=== PATIENT | female | born 1970 | race Caucasian/White ===

== ENCOUNTER 2019-04-18 16:20 | Outpatient (REF) | payer OTHER, SELFPAY ==
--- NOTE | 2019-04-18 15:30 | PAPFT_PTH ---
PATIENT: Nadia Reed LOC: [facility] U#:[id number] AGE/SX: 48/F ROOM: RE04/18/[address]: DELMAR Perez : 1970 BED: DIS: 04/18/2019 SPEC #: [id number] RECD: 04/18/19 17:39 STATUS: ALESSIO REJesse #: [id number] ISAC: 04/18/19 15:[address]: Fannie Negron DEPT: [facility] Cytology RECD BY: Maricarmen Fregoso ENTERED: 04/18/19 17:39 SP TYPE: PAPFT GILL DR: Donna Roche Tissues: 1 - CX/ENDOCX FOR PAP SMEARS Procedures: PAP THIN PREP/UVM Screening HPV DNA PROBE Comments: [id number]
== END 2019-04-18 16:40 ==
LOC: LBN 16:20
PROVIDERS: Visit Provider Nurse Practitioner Family
DX: Z12.4 Encounter for screening for malignant neoplasm of cervix (principal); Z11.51 Encounter for screening for human papillomavirus (HPV)
CPT/HCPCS: 88142; 87624

== ENCOUNTER 2019-05-03 01:38 | Outpatient (CLI) | payer OTHER, SELFPAY ==
--- NOTE | 2019-05-03 12:45 | DI.US_ITS ---
EXAM: US PELVIS AND TRANSVAGINAL CLINICAL HISTORY: DYSPAREUNIA AND BLOATING TECHNIQUE: Ultrasound performed using standard protocol. COMPARISON: ABD PELVIS WITH CONTRAST from 10/02/2009 FINDINGS: The uterus measures 9.7 x 3.7 x 4.8 cm. There is a posterior fibroid measuring 3.3 x 2.5 x 2.2 cm. T he endometrial stripe measures 6 millimeters in thickness. There is no evidence of free fluid or hyd ronephrosis. There is a 1.5 centimeter follicle on the right ovary. The left ovary is unremarkable. There are mildly prominent vessels on the left-side of the pelvis, in the left adnexal region. Fin dings could represent pelvic congestion syndrome. IMPRESSION: 3.3 centimeter posterior fibroid. Mildly dilated vessels in the left adnexal region could represent pelvic congestion. DATA REPOSITORY:
== END 2019-05-03 01:58 ==
PROVIDERS: PCP Nurse Practitioner Family; Visit Provider Nurse Practitioner Family
DX: N94.10 Unspecified dyspareunia (principal); R14.0 Abdominal distension (gaseous); D25.9 Leiomyoma of uterus, unspecified; N83.01 Follicular cyst of right ovary
CPT/HCPCS: 76830; 76856

== ENCOUNTER 2019-05-04 03:39 | Outpatient (CLI) | payer OTHER, SELFPAY | END 2019-05-04 03:59 | PROVIDERS: PCP Nurse Practitioner Family; Visit Provider Nurse Practitioner Family | DX: R00.2 Palpitations (principal); I49.3 Ventricular premature depolarization | CPT/HCPCS: 93225 ==

== ENCOUNTER 2019-05-08 09:02 | Outpatient (CLI) | payer OTHER, SELFPAY ==
--- NOTE | 2019-05-08 09:46 | W.CARDEVENT ---
Date of service: 05/08/19 Time of Service: 09:46 Cardiac Event Recorder Cardiac Event Note: There is a 24-hour Holter monitor ordered for the indication of palpitations. ?The patient was in normal sinus rhythm for the majority of the recording. ?There were 0 episodes of supraventricular tachycardia and 0 premature atrial contractions. ?There were no episodes of ventricular tachycardia and 6 single ventricular ectopic beats. ?There were 0 episodes of atrial fibrillation, no pauses greater than 3 seconds and no evidence of high degree heart block. ?Patient diary event was associated with normal sinus rhythm.
--- NOTE | 2019-05-08 13:26 | W.HOLTRPT ---
Date of service: 05/08/19 Time of Service: 13:26 Holter Monitor Report Holter Monitor Note: This is a 24-hour Holter monitor ordered for the indication of palpitations. ?The patient was in normal sinus rhythm for the majority of the recording. ?There were 0 episodes of supraventricular tachycardia and 0 premature atrial contractions. ?There were no episodes of ventricular tachycardia and 6 single ventricular ectopic beats. ?There were 0 episodes of atrial fibrillation, no pauses greater than 3 seconds and no evidence of high degree heart block. ?Patient diary event was associated with normal sinus rhythm.
== END 2019-05-08 09:22 ==
PROVIDERS: PCP Nurse Practitioner Family; Visit Provider Nurse Practitioner Family
DX: R00.2 Palpitations (principal); I49.3 Ventricular premature depolarization
CPT/HCPCS: 93226

== ENCOUNTER 2019-05-16 08:10 | Outpatient (REF) | payer OTHER, SELFPAY ==
[2019-05-16 12:19] LABS: HCT 40.7 % (36.0-46.0); Mean Corp. HGB Concentration 31.9 g/dL (32.0-36.0); Mean Corpuscular Hemoglobin 29.7 pg (27.0-33.0); Mean Corpuscular Volume 92.9 fL (80-95); Mean Platelet Volume 10.3 fL (8.0-11.0); Platelet Count 358 x1000/uL (130-400); RBC 4.38 m/cumm (4.00-5.20); RBC Distribution Width 14.2 % (11.7-14.6); White Blood Cell Count 10.84 k/cumm (4.4-10.8)
[2019-05-16 12:32] LABS: ALT 15 U/L (14-59); AST 12 U/L (15-37); Anion Gap 7.8 mmol/L (3-11); BUN 14 mg/dL (7-18); CO2 29.2 mmol/L (21.0-32.0); CREATININE 0.73 mg/dL (0.55-1.02); Calcium 9.2 mg/dL (8.5-10.1); Calculated LDL 153 mg/dL (<100); Chloride 104 mmol/L (98-107); Cholesterol 219 mg/dL (<200); Glucose 83 mg/dL (74-106); HDL Cholesterol 53 mg/dL (40-60); Potassium 4.8 mmol/L (3.5-5.1); Sodium 141 mmol/L (136-145); Triglyceride 66 mg/dL (<150)
== END 2019-05-16 08:30 ==
LOC: NCHCN 08:10
PROVIDERS: PCP Nurse Practitioner Family; Visit Provider Nurse Practitioner Family
DX: R00.2 Palpitations (principal); Z13.220 Encounter for screening for lipoid disorders; I10 Essential (primary) hypertension
CPT/HCPCS: 80048; 80061; 85027; 84450; 84460

== ENCOUNTER 2019-05-19 07:28 | Outpatient (CLI) | payer OTHER, SELFPAY ==
--- NOTE | 2019-05-19 15:52 | DI.MAMMO_ITS ---
EXAM: MG MAMMO SCREENING CLINICAL HISTORY: screening, Z12.39 TECHNIQUE: Bilateral full field digital CC and MLO mammographic images were obtained with 3D tomosyn thesis and utilizing computer aided detection (CAD). COMPARISON: This is a baseline examination. FINDINGS: Masses/Architectural Distortion: None seen. Microcalcifications: No suspicious pleomorphic-type are seen. Skin Thickening/Nipple Retraction: None. IMPRESSION: 1. No significant interval change with no specific features of malignancy noted. 2. Unless there is more urgent need, screening mammography is recommended, as per [employer] guidelines. BI-RADS Cat 1 - Negative Breast Density - Category B - Scattered areas of fibroglandular density A negative radiographic report should not delay biopsy if a dominant or clinically suspicious mass is present. Up to ten percent of cancers are not identified on mammography. A negative report may reinforce clinical impression. Adenosis and dense breasts may obscure an underlying neoplasm. False positive reports average 6 to 10%. Patient will receive a letter notifying them of these results.
== END 2019-05-19 07:48 ==
PROVIDERS: PCP Nurse Practitioner Family; Visit Provider Nurse Practitioner Family
DX: Z12.31 Encounter for screening mammogram for malignant neoplasm of breast (principal)
CPT/HCPCS: 77063; 77067

== ENCOUNTER 2019-06-15 11:04 | Outpatient (REF) | payer OTHER, SELFPAY ==
[2019-06-19 09:57] LABS: HBs Antibody, Quant <3.1 mIU/mL (See Note); Hepatitis B Surface Ab Negative (See Note)
[2019-06-19 10:22] LABS: Hepatitis C Ab w Rflx HCV PCR Negative (Negative)
[2019-06-19 10:44] LABS: HIV-1/2 Ag & Ab Screen Negative (Negative)
[2019-06-20 12:09] LABS: Syphilis Serology (RPR) Negative (Negative)
== END 2019-06-15 11:24 ==
LOC: NCHCN 11:04
PROVIDERS: PCP Nurse Practitioner Family; Visit Provider Nurse Practitioner Family
DX: Z11.3 Encounter for screening for infections with a predominantly sexual mode of transmission (principal); Z11.4 Encounter for screening for human immunodeficiency virus [HIV]; Z11.59 Encounter for screening for other viral diseases
CPT/HCPCS: 86706; 86803; 87389; 87491; 87591; 86592; 87480; 87510; 87660

== ENCOUNTER 2019-06-16 11:20 | Outpatient (REF) | payer OTHER, SELFPAY ==
[2019-06-19 12:28] LABS: Chlamydia Result Negative (Negative); GC Result Negative (Negative)
== END 2019-06-16 11:40 ==
LOC: NCHCN 11:20
PROVIDERS: PCP Nurse Practitioner Family; Visit Provider Nurse Practitioner Family
DX: Z11.3 Encounter for screening for infections with a predominantly sexual mode of transmission (principal)
CPT/HCPCS: 87491; 87591

== ENCOUNTER 2020-06-20 11:20 | Outpatient (REF) | payer OTHER, SELFPAY ==
--- NOTE | 2020-06-21 11:00 | SKI_PTH ---
PATIENT: Nadia Reed LOC: [facility] U#:[id number] AGE/SX: 49/F ROOM: RE06/20/[address]: Macey Brown : 1970 BED: DIS: 06/20/2020 SPEC #: [id number] RECD: 06/21/20 12:16 STATUS: ALESSIO CHARLES #: [id number] ISAC: 06/21/20 11:[address]: Macey Brown DEPT: Surgical Specimen RECD BY: Maricarmen Fregoso Tissues: 1 - SKIN BIOPSY(SHAVE/PUNCH) Procedures: SKIN LEVEL 4 Comments: [id number]
== END 2020-06-20 11:21 | disposition home or self-care (01) ==
LOC: LBN 11:20
PROVIDERS: PCP Nurse Practitioner Family; Visit Provider Nurse Practitioner Family
DX: D23.72 Other benign neoplasm of skin of left lower limb, including hip (principal)
CPT/HCPCS: 88305

== ENCOUNTER 2021-01-02 08:18 | Outpatient (REF) | payer OTHER, SELFPAY ==
[2021-01-02 14:54] LABS: ALT 24 U/L (14-59); AST 14 U/L (15-37); Anion Gap 9.4 mmol/L (3-11); BUN 14 mg/dL (7-18); CO2 28.6 mmol/L (21.0-32.0); CREATININE 0.7 mg/dL (0.55-1.02); Calcium 9.5 mg/dL (8.5-10.1); Calculated LDL 128 mg/dL (<100); Chloride 103 mmol/L (98-107); Cholesterol 200 mg/dL (<200); Glucose 92 mg/dL (74-106); HDL Cholesterol 60 mg/dL (40-60); Potassium 3.9 mmol/L (3.5-5.1); Sodium 141 mmol/L (136-145); Triglyceride 64 mg/dL (<150)
== END 2021-01-02 08:19 | disposition home or self-care (01) ==
LOC: NCHCN 08:18
PROVIDERS: PCP Nurse Practitioner Family; Visit Provider Nurse Practitioner Family
DX: E78.5 Hyperlipidemia, unspecified (principal); I10 Essential (primary) hypertension; F10.10 Alcohol abuse, uncomplicated
CPT/HCPCS: 80048; 80061; 84450; 84460

== ENCOUNTER 2021-02-06 18:18 | Emergency (ER) | payer OTHER, SELFPAY ==
[2021-02-06 18:25] VITALS: BP 177/109; PULSE 121; RESP 16; TEMP 37.2; O2SAT 100
--- NOTE | 2021-02-06 18:30 | DI.RAD_ITS ---
Exam(s) XR PORTABLE CHEST AP EXAM: XR PORTABLE CHEST AP CLINICAL HISTORY: hemoptysis TECHNIQUE: 2D digital imaging was performed of the chest. One image was obtained. An AP view was ob tained. COMPARISON: CR ABD FLAT UPRIGHT PA CHEST from 10/02/2009 FINDINGS: MEDIASTINUM: Normal. HEART: Normal. PULMONARY VASCULATURE: Normal. LUNGS: Clear. PLEURAL SPACE: No pleural effusion or pneumothorax. BONE:Within normal limits for the patient's age. OTHER FINDINGS:Normal. IMPRESSION: No acute pulmonary findings. DATA REPOSITORY: RADIATION DOSE DELIVERED:
--- NOTE | 2021-02-06 18:44 | ED.GENADUL_ITS ---
Discharge Plan Disposition Patient Disposition: HOME Condition: Stable Discharge Details Clinical Impression: Hemoptysis Primary Care Provider: Macey Brown ED Provider: Nirmala Shi Home Meds and New Rx's Prescriptions: Continued hydrochlorothiazide 25 mg tablet 25 mg PO DAILY RF: 0 bupropion HCl 150 mg tablet extended release 24 hr 150 mg PO QAM RF: 0 atorvastatin 10 mg tablet 20 mg PO DAILY RF: 0 vitamin E 100 unit Capsule 100 unit PO DAILY RF: 0 ascorbic acid (vitamin C) [Vitamin C] 500 mg Tablet 500 mg PO .QHS RF: 0 Discharge Instructions Instructions: Hemoptysis (ED) Stand Alone Forms: Work Release Referrals: Leonie Lara MD [ [facility]] - Medical Decision Making smoker with chronic smokers cough which became productive tonight, no fever or other symptoms chest xray, cbc, cmp, coags. patient is hemodynamically stable and physical exam unremarkable. no respiratory distress oxygenating 100 on room air. xray with no acute f indings. labs reviewed and unremarkable. a sputum has been obtained and is sent to lab, results pending at discharge. will be referred to pulmonology for further evaluation. return sooner for new or worsening symptoms Medical Records Medical records reviewed: Yes I reviewed the patient's medical records. Imaging Data Radiologic Study: Imaging: X-Ray Radiologist's impression: PROCEDURE INFORMATION: Exam: XR Chest Exam date and time: 02/06/2021 6:42 PM Age: 50 years old Clinical indication: Other: Hemoptysis TECHNIQUE: Imaging protocol: XR of the chest. Views: 1 view. COMPARISON: No relevant prior studies available. FINDINGS: Lungs: The lungs are clear. There is no pulmonary vascular congestion. Pleural spaces: There are no pleural effusions present. Heart/Mediastinum: The cardiomediastinal silhouette is within normal limits. Bones/joints: Unremarkable. IMPRESSION: No active cardiopulmonary disease identified. Dictated and Authenticated by: Dayton Stapleton MD. Ordering:KENNETH Silvestre MD Lab Data Lab results reviewed: Yes I reviewed the patient's lab results. Labs: Laboratory Results - last 24 hr 02/06/21 02/06/21 02/06/21 18:40 18:40 18:55 WBC 9.45 RBC 4.20 Hgb 12.7 Hct 38.8 MCV 92.4 MCH 30.2 MCHC 32.7 RDW 12.9 Plt Count 294 MPV 9.9 Immature Gran % 0.3 Neutrophils % 57.4 Lymphocytes % 32.9 Monocytes % 7.3 Eosinophils % 1.8 Basophils % 0.3 Nucleated RBC % 0 Absolute Neutrophils 5.42 Absolute Lymphocytes 3.11 Absolute Monocytes 0.69 Absolute Eosinophils 0.17 Absolute Basophils 0.03 PT 9.6 INR 1.0 APTT 24.8 Sodium 138 Potassium 3.4 L Chloride 102 Carbon Dioxide 25.5 Anion Gap 10.5 BUN 20 H Creatinine 0.9 Estimated GFR/1.73 m2 >= 60.00 Glucose 95 Calcium 9.1 Total Bilirubin 0.2 AST 16 ALT 23 Alkaline Phosphatase 81 Total Protein 7.6 Albumin 4.0 HPI General Mode of arrival: ambulatory . Date/Time Provider Initiated Documentation: 02/06/21 18:20 . Limitations to Documentation: no limitations . Information obtained by: patient . HPI Narrative: presents for evaluation of hemoptysis, reports 2 episodes tonight. has a chronic smokers cough but reports not usually productive. states she feels she is in her usual state of health and has had no fever or shortness of breath. she is not covid vaccinated. her denies any known exposures. no abdominal pain, no coughing fit preceeding the hemoptysis. she denies any previous similar symptoms Related Data Home Medications Medication Instructions Recorded Confirmed bupropion HCl 150 mg 24 hr tablet, 150 mg PO QAM 04/18/19 02/06/21 extended release hydrochlorothiazide 25 mg tablet 25 mg PO DAILY 04/18/19 02/06/21 ascorbic acid (vitamin C) [Vitamin 500 mg PO .QHS 02/06/21 02/06/21 C] atorvastatin 20 mg PO DAILY 02/06/21 02/06/21 vitamin E 100 unit PO DAILY 02/06/21 02/06/21 Allergies Allergy/AdvReac Type Severity Reaction Status Date / Time No Known Allergies Allergy Verified 02/06/21 18:32 General Stated Complaint: RespSymp JULIAN: 3 Review of Systems All systems reviewed & are unremarkable except as noted in HPI and below Constitutional Constitutional: Denies anorexia, Denies fatigue, Denies fever(s) and Denies lethargy ENT Ears, Nose, Mouth, and Throat: Denies dysphagia and Denies dizziness Cardiovascular Cardiovascular: Denies chest pain and Denies dyspnea Respiratory Respiratory: Reports hemoptysis, Denies dyspnea and Denies wheezing Gastrointestinal Gastrointestinal: Denies abdominal pain, Denies hematochezia, Denies change in bowel habits, Denies dysphagia, Denies nausea and Denies vomiting Musculoskeletal Musculoskeletal: Denies back pain Integumentary/Breasts Skin/Breast: Denies rash Neurologic Neurologic: Denies dizziness Endocrine Endocrine: Denies fatigue Hematologic/Lymphatic Hematologic/Lymphatic: Denies easy bleeding and Denies easy bruising Allergic/Immunologic Allergic/Immunologic: Denies wheezing PFSH Active Problem List (Updated 02/06/21 @ 21:14 by Nirmala Shi NP) Hemoptysis (Acute) Hypertension (Chronic) Surgical History (Updated 12/22/17 @ 14:33 by Utrip DE) Ligation of fallopian tube Family History (Updated 04/18/19 @ 15:19 by Fannie Negron NP) Maternal Grandmother Breast cancer Social History Smoking/Tobacco Use Status: Current every day Tobacco Type: cigarettes Smoking risk assessment performed?: Yes Substance use type: does not use Female Reproductive History Menstrual control method: permanent sterilization History History 1 Para 1 Hx # Term Pregnancies Multiple births Hx # Pregnancies Ectopic pregnancies AB induced Hx Number of Living Children AB spontaneous Exam Const General: cooperative, comfortable and no acute distress Nutritional Appearance: average body habitus Orientation: alert, awake and oriented x3 [facility] Head: normal to inspection, normocephalic and atraumatic Chest Chest: normal inspection of the chest Resp Effort & Inspection: normal respiratory effort Auscultation: clear to auscultation bilaterally and diminished lung sounds (bases) bilaterally Cardio Rate: regular rate Rhythm: regular rhythm GI Inspection: normal to inspection Neuro General: patient alert, patient awake and patient oriented x3 Psych Appearance: grossly normal Mental Status: mental status grossly normal Speech and Movement: speech and movement normal Mood: anxious mood Affect: anxious affect Attitude: cooperative Thought Process: normal Thought Content: normal Insight: insight good Judgment: judgment good Course Vital Signs Vital signs: Vital Signs Temperature 37.2 C 02/06/21 18:25 Pulse 121 H 02/06/21 18:25 Respiratory Rate 16 02/06/21 18:25 Blood Pressure 177/109 H 02/06/21 18:25 Pulse Oximetry 100 02/06/21 18:25 Temperature 37.2 C 02/06/21 18:25 Temperature Source Skin 02/06/21 18:25 Pulse 121 H 02/06/21 18:25 Respiratory Rate 16 02/06/21 18:25 Respiratory Effort Non-Labored 02/06/21 18:25 Blood Pressure 177/109 H 02/06/21 18:25 Blood Pressure Position Sitting 02/06/21 18:25 Pulse Oximetry 100 02/06/21 18:25 Oxygen Delivery Method Room Air 02/06/21 18:25 Oxygen Flow Rate 0 02/06/21 18:25 Pain Level 0 02/06/21 18:25
[2021-02-06 19:04] LABS: Abs Immature Grans 0.03 10^3/uL (0.0-0.06); Absolute Basophil Count 0.03 10^3/uL (0.0-0.2); Absolute Eosinophil Count 0.17 10^3/uL (0.0-0.7); Absolute Lymphocyte Count 3.11 10^3/uL (1.2-3.4); Absolute Monocyte Count 0.69 10^3/uL (0.1-0.8); Absolute Neutrophil Count 5.42 10^3/uL (1.2-6.7); Basophils % 0.3; Eosinophils % 1.8; HCT 38.8 % (36.0-46.0); HGB 12.7 g/dL (11.2-15.7); Immature Grans % 0.3; Lymphocytes % 32.9; MCH 30.2 pg (27.0-33.0); MCHC 32.7 % (32.0-36.0); MCV 92.4 fL (80-95); MPV 9.9 fL (8.0-11.0); Monocytes % 7.3; Neutrophils % 57.4; Nucleated RBC 0 %; Platelet Count 294 10^3/uL (130-400); RDW 12.9 % (11.7-14.6); RDW-SD 43.8 fL; WBC 9.45 10^3/uL (4.4-10.8)
[2021-02-06 20:10] LABS: PTT Activated 24.8 sec (21.0-27.5); Prothrombin Time 9.6 sec (9.3-11.0)
--- NOTE | 2021-02-06 20:29 | DI.VRAD_ITS ---
PROCEDURE INFORMATION: Exam: XR Chest Exam date and time: 02/06/2021 6:42 PM Age: 50 years old Clinical indication: Other: Hemoptysis TECHNIQUE: Imaging protocol: XR of the chest. Views: 1 view. COMPARISON: No relevant prior studies available. FINDINGS: Lungs: The lungs are clear. There is no pulmonary vascular congestion. Pleural spaces: There are no pleural effusions present. Heart/Mediastinum: The cardiomediastinal silhouette is within normal limits. Bones/joints: Unremarkable. IMPRESSION: No active cardiopulmonary disease identified. Dictated and Authenticated by: Dayton Stapleton MD. Ordering:KENNETH Silvestre MD
[2021-02-06 21:08] LABS: ALT 23 U/L (14-59); AST 16 U/L (15-37); Alkaline Phosphatase 81 U/L (46-116); Anion Gap 10.5 mmol/L (3-11); BUN 20 mg/dL (7-18); Bilirubin, Total 0.2 mg/dL (0.2-1.0); CO2 25.5 mmol/L (21.0-32.0); CREATININE 0.9 mg/dL (0.55-1.02); Calcium 9.1 mg/dL (8.5-10.1); Chloride 102 mmol/L (98-107); Glucose 95 mg/dL (74-106); Potassium 3.4 mmol/L (3.5-5.1); Sodium 138 mmol/L (136-145); Total Protein 7.6 g/dL (6.4-8.2)
[2021-02-06 21:30] VITALS: BP 152/96; PULSE 134; TEMP 36.6; O2SAT 98
[2021-02-06 21:37] VITALS: BP 152/96; PULSE 118; TEMP 36.6; O2SAT 98
[2021-02-08 16:52] LABS: COVID-19 RT-PCR UVMMC Result Negative (Negative)
== END 2021-02-06 21:44 | disposition home or self-care (01) ==
PROVIDERS: Emergency Provider Nurse Practitioner Acute Care; PCP Nurse Practitioner Family
DX: R04.2 Hemoptysis (principal); F17.210 Nicotine dependence, cigarettes, uncomplicated; J41.0 Simple chronic bronchitis; Z20.822 Contact with and (suspected) exposure to COVID-19
CPT/HCPCS: 36415; 80053; 99283; U0003; 71045; 85025; 85610; 85730; 87070; 87205

== ENCOUNTER 2021-03-10 00:37 | Outpatient (CLI) | payer OTHER, SELFPAY ==
[2021-03-10] MEDS: Omnipaque 350 MG/ML 100 ML BTL IJ (09:20)
--- NOTE | 2021-03-10 09:20 | DI.CT_ITS ---
Exam(s) CT CHEST W EXAM: CT CHEST W CLINICAL HISTORY: HEMOPTYSIS, R04.2 TECHNIQUE: Imaging Protocol: Axial computed tomography images with coronal and sagittal reformatted images were created and reviewed CONTRAST MATERIAL: Intravenous: Omnipaque 350 Contrast volume:70 ml. COMPARISON: CT ABD PELVIS WITH CONTRAST from 10/02/2009 CR ABD FLAT UPRIGHT PA CHEST from 10/02/2009 CT ABD PELVIS WITH CONTRAST from 10/02/2009 CR ABD FLAT UPRIGHT PA CHEST from 10/02/2009 CR,XR XR PORTABLE CHEST AP from 02/06/2021 CR,XR XR PORTABLE CHEST AP from 02/06/2021 FINDINGS: Tracheobronchial tree: No bronchiectasis or mucous plugging. Mediastinum and Candy: No dominant adenopathy or fluid collection. Pulmonary parenchyma: Mild bilateral paraseptal emphysema bilateral lung apices. No consolidation or dominant measurable mass. Pleura: No effusion or pneumothorax. Heart: The heart is not dilated. No coronary artery calcifications are seen. Aorta: Thoracic aorta non-dilated. Upper abdomen: Unremarkable. Lymph nodes: Within normal limits. Bones: Old mild compression deformity L1. Soft tissues: Unremarkable. IMPRESSION: Mild apical emphysema. RADIATION DOSE DELIVERED: 492.71mGy.cm Total DLP DATA REPOSITORY: All CT scans at this facility are submitted to the National Radiology Data Registry (NRDR) Dose Index Registry (DIR) with the [employer] (A[employer]). RADIATION OPTIMIZATION: All CT scans at this facility use at least one of these dose optimization te chniques: automated exposure control; mA and/or kV adjustment per patient size (includes targeted exa ms where dose is matched to clinical indication); or iterative reconstruction.
== END 2021-03-10 00:57 ==
PROVIDERS: PCP Nurse Practitioner Family; Visit Provider Nurse Practitioner Family
DX: R04.2 Hemoptysis (principal); J43.8 Other emphysema
CPT/HCPCS: 71260; J3490

== ENCOUNTER 2021-07-17 00:31 | Outpatient (CLI) | payer OTHER, SELFPAY ==
--- NOTE | 2021-07-17 07:52 | DI.MAMMO_ITS ---
Exam(s) MAMMO SCREENING EXAM: MAMMO SCREENING CLINICAL HISTORY: SCREENING, Z12.39 TECHNIQUE: Mammograms were interpreted according to the usual protocol including computer analysis w [employer] CAD system, tomosynthesis and C-view imaging. COMPARISON: FINDINGS: The breasts are of moderate density with somewhat asymmetric distribution of fibroglandular tissue in the breasts. The examination is compared with prior examination of May 2019 and there is an appar ent new area nodularity projected in the lateral central portion of the right breast on CC view. Thi s may correspond to an area of questionable asymmetric density or nodularity seen in the central port ion the breast on the MLO view. Additional mammographic views of this area are requested to include CC and MLO spot compression views of the right breast. No other significant change seen. IMPRESSION: Additional mammographic views of the right breast requested as described above. Right breast ultraso und recommended as well. BI-RADS Category 0 - Assessment Incomplete: Need additional imaging evaluation Breast Density - Category B - Scattered areas of fibroglandular density
== END 2021-07-17 00:51 ==
PROVIDERS: PCP Nurse Practitioner Family; Visit Provider Family Medicine
DX: Z12.31 Encounter for screening mammogram for malignant neoplasm of breast (principal); R92.8 Other abnormal and inconclusive findings on diagnostic imaging of breast
CPT/HCPCS: 77063; 77067

== ENCOUNTER → 2021-07-22 01:15 | Outpatient (CLI) | payer OTHER, SELFPAY ==
--- NOTE | 2021-07-22 | DI.MAMMO_ITS ---
Exam(s) MG MAMMO SCREEN CALL BACK UNI EXAM: MAMMO SCREEN CALL BACK UNI -RIGHT AND COMPLETE RIGHT BREAST ULTRASOUND CLINICAL HISTORY: F/U MAMMO, NEW AREA NODULARITY RT BREAST. TECHNIQUE: Unilateral spot mammographic images obtained with 3D tomosynthesisand utilizing computer aided detection (CAD). . Complete RIGHT breast Ultrasound was also performed, including all 4 quadrants, the retroareolar aníbal on, and the ipsilateral axilla. COMPARISON: Prior mammograms were reviewed. This additional imaging was performed due to findings described on the recent screening mammogram of 07/17/2021.. FINDINGS: DIAGNOSTIC RIGHT BREAST MAMMOGRAM: Additional mammographic views performed todaydo not dissipate this nodule.There are no malignant-appe aring microcalcification groups in this region. COMPLETE RIGHT BREAST ULTRASOUND: Ultrasound performed today reveals no evidence of solid or significant cystic lesions in all 4 quadra nts. Also no focal findings in the retroareolar region. Patient was scanned both by the creative technologist and myself. Also no adenopathy in the right axilla IMPRESSION: 1. There is an 8 x 5 millimeter well-defined nodular density in the right breast located approximatel y 5 cm in from the nipple, lateral of center. However, there is no correlative focal finding on ultr asound examination of the right breast. In addition, this not typical appearance benign intramammary lymph node this nodules also significantly more evident than on the prior mammogram of May 2019. 2. Recommend MRI examination. Findings were discussed by myself with the patient today. BI-RADS Category 0 - Assessment Incomplete: Need additional imaging evaluation, specifically MRI exam ination of the breasts. Breast Density - Category B - Scattered areas of fibroglandular density Breast density Category C or D implies that the patient has dense breast tissue. Dense breast tissue can make it harder to find cancer on a mammogram. Dense breast tissue is also associated with an incr eased risk of breast cancer. This information about the result of the mammogram report was provided to the patient to raise their awareness. Use this report when you speak with the patient about their risks for breast cancer, which includes their family history. At that time, you may recommend additional screening tests (Ultrasoun d or MRI) as these tests may add significant information. A negative radiographic report should not delay biopsy if a dominant or clinically suspicious mass is present. Up to ten percent of cancers are not identified on mammography. A negative report may reinforce clinical impression. Adenosis and dense breasts may obscure an underlying neoplasm. False positive reports average 6 to 10%. Patient will receive a letter notifying them of these results.
--- NOTE | 2021-07-22 | DI.US_ITS ---
Exam(s) US BREAST RT COMPLETE EXAM: US BREAST RT COMPLETE CLINICAL HISTORY: F/U MAMMO/SPOTS, NEW AREA NODULARITY RT BREAST. TECHNIQUE: Complete ultrasound of the right breast was performed including all 4 quadrants, the retr oareolar region, and the ipsilateral axilla. COMPARISON: Prior mammograms were reviewed. Today's diagnostic mammogram was also reviewed. FINDINGS: See combined report. IMPRESSION: Persistent nodule on the mammogram with no finding on ultrasound to correspond. In addition, this no dule does not have typical appearance of a benign intramammary lymph node on mammography. Appropriate follow-up is MRI exam. BI-RADS Category 0 - Assessment Incomplete: Need additional imaging evaluation Breast Density - Category B - Scattered areas of fibroglandular density Breast density Category C or D implies that the patient has dense breast tissue. Dense breast tissue can make it harder to find cancer on a mammogram. Dense breast tissue is also associated with an incr eased risk of breast cancer. This information about the result of the mammogram report was provided to the patient to raise their awareness. Use this report when you speak with the patient about their risks for breast cancer, which includes their family history. At that time, you may recommend additional screening tests (Ultrasoun d or MRI) as these tests may add significant information. A negative radiographic report should not delay biopsy if a dominant or clinically suspicious mass is present. Up to ten percent of cancers are not identified on mammography. A negative report may reinforce clinical impression. Adenosis and dense breasts may obscure an underlying neoplasm. False positive reports average 6 to 10%. Patient will receive a letter notifying them of these results.
== END ==
PROVIDERS: PCP Nurse Practitioner Family; Visit Provider Family Medicine
DX: Z12.31 Encounter for screening mammogram for malignant neoplasm of breast (principal); R92.8 Other abnormal and inconclusive findings on diagnostic imaging of breast; N63.15 Unspecified lump in the right breast, overlapping quadrants
CPT/HCPCS: 76642; 77063; 77067

== ENCOUNTER 2021-11-18 19:23 | Emergency (ER) | payer OTHER, SELFPAY ==
[2021-11-18 19:28] VITALS: BP 181/96; PULSE 91; RESP 16; TEMP 36.9; O2SAT 100
--- NOTE | 2021-11-18 20:00 | DI.RAD_ITS ---
Exam(s) XR FOREARM LT EXAM: XR FOREARM LT CLINICAL HISTORY: mid forearm trauma. TECHNIQUE: 2D digital imaging was performed. COMPARISON: No exams were available for comparison FINDINGS: Two views: Mild dorsal soft tissue swelling. No fractures. No radiopaque foreign body. Bone density normal. No osseous lesions. IMPRESSION: Soft tissue swelling dorsally. No fractures. DATA REPOSITORY: RADIATION DOSE DELIVERED:
--- NOTE | 2021-11-18 20:49 | ED.GENADUL_ITS ---
Discharge Plan Disposition Patient Disposition: HOME Condition: Stable Discharge Details Clinical Impression: Contusion of forearm, left Primary Care Provider: Macey Brown ED Provider: Vaibhav Carballo Home Meds and New Rx's Prescriptions: Continued hydrochlorothiazide 25 mg tablet 25 mg PO DAILY bupropion HCl 150 mg tablet extended release 24 hr 150 mg PO QAM atorvastatin 10 mg tablet 20 mg PO DAILY Label Comments: Take 2 tablet by mouth at bedtime TAKE 2 TABLETS BY MOUTH DAILY AT BEDTIME vitamin E 100 unit Capsule 100 unit PO DAILY ascorbic acid (vitamin C) [Vitamin C] 500 mg Tablet 500 mg PO .QHS Discharge Instructions Instructions: Contusion in Adults (ED) Additional Instructions: Please apply ice and continue to take [id number] pain medication as needed for discomfort. If you develop any new or significant worsening of symptoms feel free to return to the emergency department otherwise follow-up with your primary care provider if not improving in the next 1 to 2 weeks. Referrals: Macey Brown [Primary Care Provider] - (If not improving in the next 1 to 2 weeks) Discharge Data Discharge Date/Time-TO BE ENTERED AT DEPARTURE: 11/18/21 20:58 Medical Decision Making Patient presenting to the emergency department for chief complaint of fall with left forearm injury. She denies any other injury or trauma. Patient has some swelling and significant tenderness to the midshaft left forearm. There is also difficulty with supination and pronation of the forearm exam is otherwise unremarkable, CMS is intact distal to injury. We will perform radiological imaging of the forearm. Patient denies any need of pain medication at this time. My review of radiological imaging shows no acute fracture. Will discharge patient with recommendations to apply ice and use [id number] pain medication as needed and to return for new or worsening symptoms after discussion of diagnosis and plan of care patient has no further needs, questions, or concerns and states clear understanding to return to the emergency department for any worsening symptoms. This documentation was generated using [employer] system, please disregard any oddities of phrase or misspellings. HPI General Mode of arrival: ambulatory . Date/Time Provider Initiated Documentation: 11/18/21 19:52 . Limitations to Documentation: no limitations . Information obtained by: patient, family and RN notes reviewed . History of Present Illness 51 year old F presents to the emergency department with the chief complaint of left fore arm injury, described as severe, with intensity rated at 9. Quality is described as sharp, and is localized to the left and upper extremity. Patient started experiencing this minute(s) (20) and it has been constant. Immobilization improves symptom(s), Movement worsens symptoms . Patient notes no other symptoms.. Patient did receive the following treatments prior to arrival, none Related Data Home Medications Medication Instructions Recorded Confirmed bupropion HCl 150 mg 24 hr tablet, 150 mg PO QAM 04/18/19 11/18/21 extended release hydrochlorothiazide 25 mg tablet 25 mg PO DAILY 04/18/19 11/18/21 ascorbic acid (vitamin C) 500 mg 500 mg PO .QHS 02/06/21 11/18/21 tablet (Vitamin C) atorvastatin 10 mg tablet 20 mg PO DAILY 02/06/21 11/18/21 vitamin E 100 unit capsule 100 unit PO DAILY 02/06/21 11/18/21 Allergies Allergy/AdvReac Type Severity Reaction Status Date / Time lisinopril Allergy Mild Verified 11/18/21 19:32 General Stated Complaint: Orthopedic JULIAN: 3 Review of Systems Narrative: 8 systems reviewed and unremarkable except what is marked below. Musculoskeletal Musculoskeletal: Reports as per HPI, Denies deformity, Reports limited range of motion, Reports muscle weakness, Denies numbness and Denies tingling Integumentary/Breasts Skin/Breast: Denies wounds Neurologic Neurologic: Denies numbness and Denies tingling PFSH All Active Problems (Updated 11/18/21 @ 20:53 by Vaibhav Carballo NP) Contusion of forearm, left (Acute) Nicotine dependence, cigarettes, uncomplicated (Acute) Pulmonary nodule (Acute) Hypertension (Chronic) Medical History (Updated 11/18/21 @ 20:53 by Vaibhav Carballo NP) Hemoptysis Surgical History (Updated 12/22/17 @ 14:33 by [place]) Ligation of fallopian tube Family History (Updated 04/18/19 @ 15:19 by Fannie Negron NP) Maternal Grandmother Breast cancer Social History (Updated 02/13/21 @ 15:15 by Carlota Grier) Smoking/Tobacco Use Status: Former Tobacco Use tobacco type: cigarettes Quit Date: 02/06/21 Smoking risk assessment performed?: Yes Drug use: Occasionally Substance use type: marijuana Female Reproductive History Menstrual control method: permanent sterilization History History 1 Para 1 Hx # Term Pregnancies Multiple births Hx # Pregnancies Ectopic pregnancies AB induced Hx Number of Living Children AB spontaneous Exam Const General: cooperative, no acute distress and not ill appearing Orientation: alert, awake and oriented x3 Resp Effort & Inspection: normal respiratory effort, able to speak in complete sentences and no respiratory distress Cardio Rate: regular rate Rhythm: regular rhythm Pulses: normal peripheral pulses Skin General skin exam: no rashes or lesions noted Neuro General: patient alert, patient awake, patient oriented x3, moves all extremities and no focal motor deficits Sensory Exam: no sensory deficits noted Extrem General: normal exam except as noted Left upper extremity: elbow/forearm Details: tenderness Location: of the mid-s haft forearm, abnormal ROM Details: pain with active ROM Details: with pronation and with supination, pain with passive ROM Details: with pronation and with supination and with range as follows (Normal except for reduced pronation and supination) and distal pulses intact; no abrasions, no lacerations and no ecchymosis Course Vital Signs Vital signs: Vital Signs Temperature 36.9 C 11/18/21 19:28 Pulse 91 H 11/18/21 19:28 Respiratory Rate 16 11/18/21 19:28 Blood Pressure 181/96 H 11/18/21 19:28 Pulse Oximetry 100 11/18/21 19:28 Temperature 36.9 C 11/18/21 19:28 Temperature Source Skin 11/18/21 19:28 Pulse 91 H 11/18/21 19:28 Respiratory Rate 16 11/18/21 19:28 Respiratory Effort Non-Labored 11/18/21 20:20 Respiratory Depth Normal 11/18/21 20:20 Respiratory Pattern Normal 11/18/21 20:20 Blood Pressure 181/96 H 11/18/21 19:28 Blood Pressure Position Sitting 11/18/21 19:28 Pulse Oximetry 100 11/18/21 19:28 Oxygen Delivery Method Room Air 11/18/21 20:20 Oxygen Flow Rate 0 11/18/21 20:20 Pain Level 10 11/18/21 19:28
--- NOTE | 2021-11-18 21:01 | DI.VRAD_ITS ---
PROCEDURE INFORMATION: Exam: XR Left Forearm Exam date and time: 11/18/2021 8:29 PM Age: 51 years old Clinical indication: Other: Mid forearm trauma TECHNIQUE: Imaging protocol: Radiologic exam of the Left forearm. Views: 2 views. COMPARISON: No relevant prior studies available. FINDINGS: Bones/joints: Bone mineralization is age-appropriate. There is no evidence of fracture. No evidence of dislocation. The joint spaces are adequately preserved; no significant degenerative narrowing and no bony erosion seen. Soft tissues: No radiopaque foreign body present. There is soft tissue swelling present. IMPRESSION: 1. No acute osseous abnormality. 2. Soft tissue swelling only. Dictated and Authenticated by: Derek Sparks MD. Ordering:LUDWIN Esposito MD
== END 2021-11-18 20:58 | disposition home or self-care (01) ==
PROVIDERS: Emergency Provider Nurse Practitioner Family; PCP Nurse Practitioner Family
DX: S50.12XA Contusion of left forearm, initial encounter (principal); Z87.891 Personal history of nicotine dependence; W19.XXXA Unspecified fall, initial encounter
CPT/HCPCS: 99283; 73090; 99282

== ENCOUNTER 2022-06-05 11:16 | Outpatient (REF) | payer OTHER, SELFPAY ==
--- NOTE | 2022-06-05 10:10 | PAPFT_PTH ---
PATIENT: Nadia Reed LOC: [facility] U#:[id number] AGE/SX: 51/F ROOM: RE06/05/[address]: Qian Guevara MD : 1970 BED: DIS: 06/05/2022 SPEC #: [id number] RECD: 06/07/22 07:47 STATUS: ALESSIO REQ #: [id number] ISAC: 06/05/22 10:[address]: Qian Guevara DEPT: [facility] Cytology RECD BY: Mallory Edgar ENTERED: 06/07/22 07:47 SP TYPE: PAPFT OTHR DR: Macey Brown Tissues: 1 - CX/ENDOCX FOR PAP SMEARS Procedures: PAP THIN PREP/[facility] Screening HPV DNA PROBE Comments: [id number] (HPV 16 & 18/45) (CHLAMYDIA/GC)
[2022-06-08 13:28] LABS: Chlamydia Result Negative (Negative); GC Result Negative (Negative)
== END 2022-06-05 11:17 | disposition home or self-care (01) ==
LOC: LBN 11:16
PROVIDERS: PCP Nurse Practitioner Family; Visit Provider Obstetrics & Gynecology
DX: Z11.3 Encounter for screening for infections with a predominantly sexual mode of transmission (principal); Z12.4 Encounter for screening for malignant neoplasm of cervix; Z11.51 Encounter for screening for human papillomavirus (HPV); R87.810 Cervical high risk human papillomavirus (HPV) DNA test positive
CPT/HCPCS: 87491; 87591; 88142; 87624

== ENCOUNTER 2022-07-06 19:53 | Outpatient (REF) | payer OTHER, SELFPAY ==
[2022-07-06 20:17] LABS: HCT 41.6 % (36.0-46.0); HGB 13.5 g/dL (11.2-15.7); MCH 30.4 pg (27.0-33.0); MCHC 32.5 % (32.0-36.0); MCV 94 fL (80-95); MPV 10.5 fL (8.0-11.0); Platelet Count 304 10^3/uL (130-400); RBC 4.44 10^6/uL (3.93-5.22); RDW 13.1 % (11.7-14.6); RDW-SD 45.1 fL; WBC 8.99 10^3/uL (4.4-10.8)
[2022-07-06 20:30] LABS: Anion Gap 8.8 mmol/L (3-11); BUN 16 mg/dL (7-18); CO2 27.2 mmol/L (21.0-32.0); CREATININE 0.8 mg/dL (0.55-1.02); Calcium 9.8 mg/dL (8.5-10.1); Chloride 107 mmol/L (98-107); Estimated GFR 90.27 (mL/min/1.73m2); Glucose 89 mg/dL (74-106); Potassium 4.5 mmol/L (3.5-5.1); Sodium 143 mmol/L (136-145)
== END 2022-07-06 19:54 | disposition home or self-care (01) ==
LOC: NCHCN 19:53
PROVIDERS: PCP Nurse Practitioner Family; Visit Provider Family Medicine
DX: Z00.00 Encounter for general adult medical examination without abnormal findings (principal); I10 Essential (primary) hypertension
CPT/HCPCS: 80048; 85027

== ENCOUNTER 2023-05-06 18:28 | Outpatient (CLI) | payer OTHER, SELFPAY ==
[2023-05-06 12:46] LABS: Abs Immature Grans 0.07 10^3/uL (0.0-0.06); Absolute Basophil Count 0.04 10^3/uL (0.0-0.2); Absolute Eosinophil Count 0.09 10^3/uL (0.0-0.7); Absolute Lymphocyte Count 2.33 10^3/uL (1.2-3.4); Absolute Monocyte Count 0.62 10^3/uL (0.1-0.8); Absolute Neutrophil Count 7.99 10^3/uL (1.2-6.7); Basophils % 0.4; Eosinophils % 0.8; HCT 42.9 % (36.0-46.0); HGB 14.5 g/dL (11.2-15.7); Immature Grans % 0.6; Lymphocytes % 20.9; MCH 31.2 pg (27.0-33.0); MCHC 33.8 % (32.0-36.0); MCV 92 fL (80-95); MPV 9.6 fL (8.0-11.0); Monocytes % 5.6; Neutrophils % 71.7; Platelet Count 342 10^3/uL (130-400); RBC 4.65 10^6/uL (3.93-5.22); RDW-SD 43.7 fL; WBC 11.14 10^3/uL (4.4-10.8)
[2023-05-06 12:52] LABS: ESR 9 mm/hr (0-20)
[2023-05-06 13:20] LABS: D-Dimer 418 ng/mlFEU (<500)
[2023-05-06 13:21] LABS: ALT 23 U/L (14-59); AST 18 U/L (15-37); Albumin 4.1 g/dL (3.4-5.0); Alkaline Phosphatase 94 U/L (46-116); Anion Gap 10.9 mmol/L (3-11); BUN 13 mg/dL (7-18); Bilirubin, Total 0.5 mg/dL (0.2-1.0); CO2 26.1 mmol/L (21.0-32.0); CREATININE 0.7 mg/dL (0.55-1.02); Chloride 103 mmol/L (98-107); Creatine Kinase 74 U/L (26-192); Glucose 105 mg/dL (74-106); Potassium 4.5 mmol/L (3.5-5.1); Sodium 140 mmol/L (136-145); Total Protein 8.2 g/dL (6.4-8.2)
== END 2023-05-06 18:29 | disposition home or self-care (01) ==
LOC: LBO 18:33
PROVIDERS: PCP Nurse Practitioner Family; Visit Provider Family Medicine
DX: M79.662 Pain in left lower leg (principal)
CPT/HCPCS: 36415; 80053; 82550; 85652; 85025; 85379

== ENCOUNTER 2023-09-16 01:13 | Outpatient (CLI) | payer OTHER, SELFPAY ==
[2023-09-16] MEDS: Levalbuterol HFA 15 GM INH 4 PUFF IH (11:17)
[2023-09-16] MEDS: Inhaler, Assist Device 1 EACH MC (11:17)
--- NOTE | 2023-09-16 12:56 | W.PFT ---
Date of service: 09/16/23 Time of Service: 10:29 Pulmonary Function Test Result Requesting Provider Yanet Melton Indications: Chronic cough Interpretation Spirometry: normal Lung Volumes: normal Diffusion Capacity: normal Impression Spirometry shows normal FEV1/FVC, FEV1 and FVC Normal lung volumes No air trapping. Normal diffusion. Normal flow volume loop. Clinical Correlation therefore is recommended.
== END 2023-09-16 01:14 | disposition home or self-care (01) ==
LOC: RT 01:14
PROVIDERS: PCP Nurse Practitioner Family; Visit Provider Physician Assistant Surgical
DX: R05.3 Chronic cough (principal); F17.210 Nicotine dependence, cigarettes, uncomplicated
CPT/HCPCS: 00123; 94060; 94726; 94729

== ENCOUNTER 2024-09-28 15:45 | Outpatient (REF) | payer SELFPAY ==
[2024-09-28 16:15] LABS: HCT 43.4 % (36.0-46.0); HGB 14.2 g/dL (11.2-15.7); MCH 30.5 pg (27.0-33.0); MCHC 32.7 % (32.0-36.0); MCV 93 fL (80-95); MPV 10.8 fL (8.0-11.0); Platelet Count 312 10^3/uL (130-400); RBC 4.66 10^6/uL (3.93-5.22); RDW 13.2 % (11.7-14.6); RDW-SD 45.1 fL; WBC 8.81 10^3/uL (4.4-10.8)
[2024-09-28 16:33] LABS: Hemoglobin A1C 5.1 % (<5.7)
[2024-09-28 16:35] LABS: ALT 22 U/L (14-59); AST 16 U/L (15-37); Albumin 4.2 g/dL (3.4-5.0); Alkaline Phosphatase 96 U/L (46-116); Anion Gap 9.1 mmol/L (3-11); BUN 10 mg/dL (7-18); Bilirubin, Total 0.5 mg/dL (0.2-1.0); CO2 28.9 mmol/L (21.0-32.0); Calcium 9.9 mg/dL (8.5-10.1); Calculated LDL 171 mg/dL (<100); Chloride 104 mmol/L (98-107); Cholesterol 261 mg/dL (<200); Estimated GFR 104.00 (mL/min/1.73m2); Glucose 93 mg/dL (74-106); HDL Cholesterol 67 mg/dL (>or=50); Potassium 4.5 mmol/L (3.5-5.1); Sodium 142 mmol/L (136-145); Total Protein 7.6 g/dL (6.4-8.2); Triglyceride 117 mg/dL (<150)
== END 2024-09-28 15:46 | disposition home or self-care (01) ==
LOC: NCHCN 15:45
PROVIDERS: PCP Family Medicine; Visit Provider Family Medicine
DX: I10 Essential (primary) hypertension (principal); E78.5 Hyperlipidemia, unspecified
CPT/HCPCS: 80053; 80061; 85027; 83036

== ENCOUNTER 2024-11-02 12:51 | Outpatient (RCR) | payer SELFPAY | END 2024-11-05 23:59 | disposition home or self-care (01) | LOC: CARDOPNVT 12:51 | PROVIDERS: PCP Family Medicine; Visit Provider Internal Medicine Cardiovascular Disease | DX: R00.2 Palpitations (principal) | CPT/HCPCS: 93225 ==

== ENCOUNTER 2024-11-06 09:07 | Outpatient (RCR) | payer OTHER, SELFPAY ==
--- NOTE | 2024-11-07 12:03 | W.HOLTRPT ---
Date of service: 11/07/24 Time of Service: 12:03 Holter Monitor Report Referring Provider:: Marco A Salvador Indications:: Palpitations Holter Monitor Note: This is a 48-hour Holter monitor Rhythm throughout was sinus with an average heart rate of 93. Minimum was 55, maximum 141 There were very rare isolated atrial and ventricular ectopic beats There was no atrial fibrillation, no high-grade AV block, no pauses greater than 3 seconds No symptoms were reported
== END 2024-12-05 23:59 | disposition home or self-care (01) ==
LOC: CARDOPNVT 09:07
PROVIDERS: PCP Family Medicine; Visit Provider Internal Medicine Cardiovascular Disease
DX: R00.2 Palpitations (principal)
CPT/HCPCS: 93226

== ENCOUNTER 2024-11-21 21:07 | Outpatient (REF) | payer OTHER, SELFPAY ==
[2024-11-21 21:27] LABS: Anion Gap 10.4 mmol/L (3-11); BUN 10 mg/dL (7-18); CO2 27.6 mmol/L (21.0-32.0); Calcium 9.6 mg/dL (8.5-10.1); Chloride 100 mmol/L (98-107); Estimated GFR 88.60 (mL/min/1.73m2); Glucose 165 mg/dL (74-106); Potassium 3.8 mmol/L (3.5-5.1); Sodium 138 mmol/L (136-145)
== END 2024-11-21 21:08 | disposition home or self-care (01) ==
LOC: NCHCN 21:07
PROVIDERS: PCP Family Medicine; Visit Provider Family Medicine
DX: I10 Essential (primary) hypertension (principal)
CPT/HCPCS: 80048

== ENCOUNTER 2025-02-28 09:02 | Outpatient (REF) | payer OTHER, SELFPAY ==
[2025-02-28 16:02] LABS: Hemoglobin A1C 5.3 % (<5.7)
[2025-02-28 16:17] LABS: Glucose 90 mg/dL (74-106)
== END 2025-02-28 09:03 | disposition home or self-care (01) ==
LOC: NCHCN 09:02
PROVIDERS: PCP Family Medicine; Visit Provider Family Medicine
DX: R73.09 Other abnormal glucose (principal)
CPT/HCPCS: 82947; 83036

== ENCOUNTER 2025-03-07 15:42 | Outpatient (REF) | payer OTHER, SELFPAY | END 2025-03-07 15:43 | disposition home or self-care (01) | LOC: NCHCN 15:42 | PROVIDERS: PCP Family Medicine; Visit Provider Family Medicine | DX: E78.5 Hyperlipidemia, unspecified (principal) | CPT/HCPCS: 83721 ==